=== PATIENT | male | born 1970 | race Caucasian/White ===

== ENCOUNTER 2016-12-26 10:09 | Emergency (ER) | payer MEDICARE, OTHER ==
[~2016-12-26] VITALS: Ht 185.4 cm; Wt 118.2 kg
[2016-12-26 10:16] VITALS: BP 131/81; PULSE 75; RESP 18; O2SAT 97
--- NOTE | 2016-12-26 10:39 | ED.REPORT ---
HPI-Extremity Problem Lower Date of Service Dec 26, 2016 ED Provider: Venancio Sarabia MD The patient is a 46 year old male with history of multiple injuries from combat , multiple musculoskeletal injuries, PTSD, who presents to the emergency department complaining of increased right calf tenderness/swelling and right foot discoloration that began earlier today. He describes the pain as "tightness." His states that his foot was "blue" earlier this morning. He has known history of a DVTs on the right and is on Xarelto. He denies any recent missed doses. He has had blood clots while on Xarelto in the past. His last ultrasound was over 2 years ago. He denies shortness of breath, cough, chest pain, fever, nausea or vomiting. He has not had a pulmonary embolism in the past. Nursing Notes Stated Complaint: POSSIBLE BLOOD CLOT Chief Complaint: Extremity Trauma Nursing Notes Reviewed: Yes Allergies: Coded Allergies: No Known Allergies (Unverified , 12/26/16) General Time Seen by MD: 10:21 Chief Complaint Other (right calf tenderness/swelling) Hx Obtained From: Patient, Spouse Arrived By: Walk-in Onset Occurred: 5 - 8 hours ago Symptom Duration: Since onset Location: : Leg right Quality: Painful Severity: Current: Mild Severity: Maximum: Moderate Associated with: Reports: Swelling Pertinent Negative: Pt denies other symptoms Recent Healthcare: No recent doctor visit, No recent hospitalization Similar Sx Previous: Yes Past Medical History Past Medical History DVTs Cervical dystonia Multiple injuries from combat PTSD TBI Past Surgical History Spine surgeries Knee surgeries Family History Noncontributory Smoking History Unknown if Ever Smoker Social History Other Social History: Good social support, , Local resident Occupation Disabled vet Ambulatory Status Independent Review of Systems Constitutional: Denies: Fever Musculoskeletal: Reports: Extremity pain, Extremity swelling Complete sys rev & neg: except as marked. Respiratory: Denies: Non-productive cough, Shortness of breath Cardiovascular: Denies: Chest pain GI: Denies: Nausea, Vomiting Physical Exam Initial Vital Signs Vital Signs (First) Date Time Temp Pulse Resp B/P Pulse Ox O2 Delivery O2 Flow Rate FiO2 12/26/16 10:16 36.0 75 18 131/81 97 Initial VS: Reviewed Head / Eyes: Atraumatic, Normocephalic, PERRL ENT: Mucous membranes moist, Conjunctiva normal, No scleral icterus Neck: Supple, Non-tender, Full range of motion Respiratory: Breath sounds normal, Clear to auscultation, No respiratory distress Cardiovascular: Regular rate & rhythm, Heart sounds normal, Intact distal pulses Abdomen / GI: Soft, Non-tender, No guarding, No rebound, No distention Upper Extremities: Vascular intact, Neuro intact, No swelling, No tenderness Skin: Warm, Dry, No cyanosis Neurologic: Alert, Oriented, Nonfocal Psychiatric: Mood/affect normal, Behavior normal, Normal thought content Lower Extremity / Pelvis / MS: Neurologic intact, Vascular intact Ankle / Foot: No deformity, Neurologic intact, Vascular intact Good cap refill to right lower extremity. DP and PT pulses intact. Right calf is diffusely tender. Left calf is nontender. General/Constitutional: Awake, Alert, Cooperative Interpretation & Diagnostics Interpretation & Diagnostics: Lower extremity US: positive for DVT on the right side, non-occlusive Lab Results Interpretation Result Diagram: 12/26/16 1139 12/26/16 1139 Test 12/26/16 10:45 12/26/16 11:39 12/26/16 11:40 Hold Urine Received (Received) White Blood Count 5.5th/mm3 (3.8-10.1) Red Blood Count 5.11mil/mm3 (4.40-5.80) Hemoglobin 15.1g/dL (13.8-17.2) Hematocrit 44.3% (41.0-50.0) Mean Corpuscular Volume 86.7fL (81-100) Mean Corpuscular Hemoglobin 29.5pg (27.0-35.0) Mean Corpuscular Hemoglobin Concent 34.1% (32.0-37.0) Red Cell Distribution Width 12.4% (12.3-15.4) Platelet Count 188bil/L (150-400) Neutrophils (%) (Auto) 60.5% (40-74) Lymphocytes (%) (Auto) 30.3% (14-46) Monocytes (%) (Auto) 7.7% (4-12) Eosinophils (%) (Auto) 1.1% (0-5) Basophils (%) (Auto) 0.2% (0-3) Prothrombin Time 12.1sec (8.1-12.5) Prothromb Time International Ratio 1.13ratio Sodium Level 138mEq/L (134-144) Potassium Level 4.7mEq/L (3.5-5.2) Chloride Level 102mEq/L (97-108) Carbon Dioxide Level 24mmol/L (18-29) Blood Urea Nitrogen 12mg/dL (6-24) Creatinine 1.01mg/dL (0.76-1.27) Estimat Glomerular Filtration Rate 84mL/min (>59) Glucose Level 134mg/dL (60-99) Calcium Level 9.0mg/dL (8.5-10.1) Total Bilirubin 0.4mg/dL (0.0-1.2) Aspartate Amino Transf (AST/SGOT) 29U/L (0-50) Alanine Aminotransferase (ALT/SGPT) 45U/L (0-44) Alkaline Phosphatase 55U/L (25-150) Total Protein 6.6g/dL (6.4-8.4) Albumin 3.9g/dL (3.4-5.0) Hold Pineda Top Tube Received (Received) Re-Eval/Medical Decision Med Decision/Clinical Course 46-year-old male [facility] history of DVTs on xarelto presenting with right lower extremity swelling. He has right lower extremity DVT with no occlusion on ultrasound here today. Discussed with oncology hematology who recommends follow-up with his team at the NH as soon as possible and no indication for hospitalization at this time. Discussed with patient and he will call his team at NH for follow-up tomorrow. Return precautions given. Source of Hx: Old records, Family Re-Evaluation/Progress : Time of Eval: 12:37 Re-Evaluation/Progress Note: Rechecked the patient. Discussed plan for discharge. All questions were addressed. Consultation : Referral / Consult Name: Roque Morris MD Consulted With: Brush Cutter Call Returned at: 12:35 Note: He agrees with plan for discharge and outpatient followup tomorrow. Counseled Regarding: Diagnosis, Lab results, Need for follow-up, When/why to return to ED Discharge & Departure Impression: Primary Impression: DVT (deep venous thrombosis) DVT location: lower extremity Affected thrombotic vein of extremity: unspecified vein of extremity Laterality: right Chronicity: unspecified Qualified Code: I82.401 - Acute embolism and thrombosis of unspecified deep veins of right lower extremity Disposition: Home Discharge Condition All VS Reviewed: Yes Condition: Stable Patient Instructions: Deep Venous Thrombosis (ED) Additional Instructions: Thank you for entrusting us with your care today. Your workup today included: labs and an ultrasound. There is evidence of a blood clot on the right side. Continue taking your Xarelto as prescribed. Call your regular doctor today to schedule a followup appointment in the next day. Please return to the emergency department if you develop chest pain, shortness of breath, increased lower extremity pain or swelling, or any other new or concerning symptoms. Referrals: Bert Milan (PCP) Scribe Attestation Portions of this note were transcribed by Rosemarie Barney. I, Dr. Sarabia personally performed the history, physical exam and medical decision-making; I reviewed and confirmed the accuracy of the information in the transcribed note. Signed by: Lashon Kelley, 12/26/2016 at 1300. copies to: Bert Milan Ben M MD Dec 26, 2016 10:39 Rosemarie Barney Dec 26, 2016 10:49
[2016-12-26 11:51] LABS: BASOPHILS % (AUTO) 0.2 % (0-3); EOSINOPHILS % (AUTO) 1.1 % (0-5); MONOCYTES % (AUTO) 7.7 % (4-12); Mean Corpuscular Hemoglobin 29.5 pg (27.0-35.0); Mean Corpuscular Volume 86.7 fL (81-100); NEUTROPHILS % (AUTO) 60.5 % (40-74); Platelet Count 188 bil/L (150-400)
[2016-12-26 12:06] LABS: INR 1.13 ratio
--- NOTE | 2016-12-26 13:09 | DRSVH ---
PROCEDURE: US VEINOUS LEG DUPLEX UNILATERAL, RIGHT INDICATIONS: 46 year-old male with history of deep venous thrombosis, with right lower extremity swel ling. TECHNIQUE: Real-time imaging, as well as color and pulse Doppler interrogation, were performed of the lower extr emity deep veins from the inguinal ligament to the popliteal fossa. COMPARISON: None available. FINDINGS: There is partially compressible nonocclusive echogenic thrombus within the popliteal vein, and adjacent inferior portions of the superficial femoral vein. Common femoral vein appears normally compressible. There is absent augmentation response to distal compression maneuver. IMPRESSION: Nonocclusive thrombus involves the right popliteal vein, extending into inferior portions of the superficial femoral vein. Dictated by: Andrae Hirsch M.D. on 12/26/2016 at 13:05 Approved by: Andrae Hirsch M.D. on 12/26/2016 at 13:07
== END 2016-12-26 13:03 | disposition home or self-care (01) ==
LOC: SED 10:09
DX: I82.401 Acute embolism and thrombosis of unspecified deep veins of right lower extremity (principal); F43.10 Post-traumatic stress disorder, unspecified